=== PATIENT | female | born 1960 | race Caucasian/White ===

== ENCOUNTER 2018-07-04 10:55 | Emergency (ER) | payer OTHER ==
[2018-07-04] MEDS ORDERED: PSEUDOEPHEDRINE HCL 30 MG TABLET PO ONE (12:15)
[2018-07-04] MEDS ORDERED: IPRATROPIUM/ALBUTEROL 0.5-2.5 MG/3 ML AMPUL NEB ONE (12:15)
[2018-07-04] MEDS ORDERED: PREDNISONE 20 MG TABLET PO ONE (12:15)
--- NOTE | 2018-07-04 12:16 | ER Document Report ---
HPI - HPI Patient complains to provider of: Cough Time Seen by Provider: 07/04/18 12:01 Onset/Duration: Persistent Pain Level: Denies Context: Patient presents complaining of nonproductive cough for the past 3-4 months. Patient does report sinus congestion that worsened today. Patient complains of fullness in her right ear. Patient denies any fever. Patient denies any history of smoking although states that she has chronically been around secondhand smoke for greater than 20 years. Associated Symptoms: Nonproductive cough, Rhinnorhea, Sinus pain/drainage. denies: Body/muscle aches, Chest pain, Fever, Sore throat Exacerbated by: Denies Relieved by: Denies Similar symptoms previously: No Recently seen / treated by doctor: No - ROS ROS below otherwise negative: Yes Systems Reviewed and Negative: Yes All other systems reviewed and negative - CONSTITUTIONAL Constitutional: DENIES: Fever - EENT EENT: REPORTS: Ear Pain, Congestion - NEURO Neurology: DENIES: Headache - CARDIOVASCULAR Cardiovascular: DENIES: Chest pain - RESPIRATORY Respiratory: REPORTS: Coughing. DENIES: Trouble Breathing - GASTROINTESTINAL Gastrointestinal: DENIES: Abdominal Pain, Nausea, Patient vomiting - MUSCULOSKELETAL Musculoskeletal: DENIES: Extremity pain, Back Pain - DERM Skin Color: Normal Skin Problems: None Past Medical History - General Information source: Patient - Social History Smoking Status: Never Smoker Frequency of alcohol use: Occasional Drug Abuse: None Occupation: None Lives with: Spouse/Significant other Family History: Reviewed & Not Pertinent EENT Medical History: Reports: Other - Seasonal allergies Endocrine Medical History: Reports: Hx Diabetes Mellitus Type 2 - controlled without meds Past Surgical History: Reports: Hx Section, Hx Cholecystectomy - Immunizations Hx Diphtheria, Pertussis, Tetanus Vaccination: Yes Vertical Provider Document - CONSTITUTIONAL Agree With Documented VS: Yes Exam Limitations: No Limitations General Appearance: WD/WN, No Apparent Distress - INFECTION CONTROL TRAVEL OUTSIDE OF THE [place] IN LAST 30 DAYS: No - HEENT HEENT: Atraumatic, Normocephalic. negative: Pharyngeal Exudate, Pharyngeal [place], Pharyngeal Erythema, Tympanic Membrane Red, Tympanic Membrane Bulging Notes: Clear rhinorrhea - NECK Neck: Normal Inspection, Supple. negative: Lymphadenopathy-Left, Lymphadenopathy-Right - RESPIRATORY Respiratory: No Respiratory Distress, Chest Non-Tender, Other - Occasional dry cough - CARDIOVASCULAR Cardiovascular: Regular Rate, Regular Rhythm, No Murmur. negative: Tachycardia - GI/ABDOMEN Gastrointestinal: Abdomen Soft - BACK Back: Normal Inspection - MUSCULOSKELETAL/EXTREMETIES Musculoskeletal/Extremeties: BIBI BUCKLEY - NEURO Level of Consciousness: Awake, Alert, Appropriate Motor/Sensory: No Motor Deficit - DERM Integumentary: Warm, Dry, No Rash Course - Re-evaluation Re-evalutation: 07/04/18 13:21 Respirations even unlabored. Patient nontoxic in appearance. Patient denies any chest discomfort. We will treat for bronchitis and encouraged outpatient follow-up with primary doctor pulmonology given length of cough duration. - Vital Signs Vital signs: Temp Pulse Resp BP Pulse Ox 98.0 F 103 H 16 140/78 H 99 07/04/18 11:01 07/04/18 11:01 07/04/18 11:01 07/04/18 11:01 07/04/18 11:01 - Diagnostic Test Radiology reviewed: Reports reviewed Discharge - Discharge Clinical Impression: Bronchitis, Sinus congestion Condition: Stable Disposition: HOME, SELF-CARE Instructions: Bronchitis ([facility]), Inhaled Bronchodilators ([facility]), Steroid Medication Additional Instructions: Return immediately for any new or worsening symptoms Followup with your primary care provider, call tomorrow to make a followup appointment Continue to take your Zyrtec as directed. Prescriptions: Albuterol Sulfate [Proair Hfa Inhalation Aerosol 8.5 gm Mdi] 2 puff IH Q4 PRN #1 mdi PRN Reason: Fluticasone Propionate [Flonase Nasal [place] 50 Mcg/[place] 16 gm] 2 spray NASL DAILY #1 bottle Prednisone [Deltasone 10 mg Tablet] 10 mg PO ASDIR PRN #21 tablet PRN Reason: Referrals: [facility] [Provider Group] - Follow up as needed [facility] [Provider Group] - Follow up as needed
--- NOTE | 2018-07-04 12:46 | RADIOLOGY REPORT (SQ) ---
EXAM DESCRIPTION: CHEST 2 VIEWS COMPLETED DATE/TIME: 07/04/2018 12:30 pm REASON FOR STUDY: cough COMPARISON: 02/10/2016 EXAM PARAMETERS: NUMBER OF VIEWS: two views TECHNIQUE: Digital Frontal and Lateral radiographic views of the chest acquired. RADIATION DOSE: NA LIMITATIONS: None FINDINGS: LUNGS AND PLEURA: No opacities, masses or pneumothorax. No pleural effusion. MEDIASTINUM AND HILAR STRUCTURES: No masses or contour abnormalities. HEART AND VASCULAR STRUCTURES: Heart normal size. No evidence for failure. BONES: No acute findings. HARDWARE: None in the chest. OTHER: No other significant finding. IMPRESSION: NO ACUTE RADIOGRAPHIC FINDING IN THE CHEST. TECHNICAL DOCUMENTATION: JOB ID: [id number] [employer]- All Rights Reserved Reading location - IP/workstation name: [email or web address]
[2018-07-04 13:55] VITALS: BP 171/93
== END 2018-07-04 13:48 | disposition home or self-care (01) ==
LOC: ER 10:55
DX: J40 Bronchitis, not specified as acute or chronic (principal); R05 Cough; R09.81 Nasal congestion; J34.89 Other specified disorders of nose and nasal sinuses; H92.09 Otalgia, unspecified ear; E11.9 Type 2 diabetes mellitus without complications
CPT/HCPCS: 94640; 99283; 71046; J7512; J7620

== ENCOUNTER 2018-07-27 11:25 | Emergency (ER) | payer OTHER ==
[2018-07-27] MEDS ORDERED: IPRATROPIUM/ALBUTEROL 0.5-2.5 MG/3 ML AMPUL NEB ONE (11:47)
--- NOTE | 2018-07-27 11:49 | ER Document Report ---
ED Medical Screen (RME) - General Chief Complaint: Cough Stated Complaint: COUGH,FEVER,SORE THROAT Time Seen by Provider: 07/27/18 11:38 Mode of Arrival: Ambulatory Information source: Patient Notes: Patient presents complaining of cough for the past 5 months that worsened over the past 3 weeks. Patient feels that the cough has started to get more wet. Patient does complain of sore throat and states she has had a fever for the past 9 days. Patient complains of shortness of breath and right posterior thoracic back pain. Patient does report exposure to influenza. Patient was seen here 3 weeks ago for this complaint and encouraged to follow-up with a primary doctor as well as pulmonology. I have greeted and performed a rapid initial assessment of this patient. A comprehensive ED assessment and evaluation of the patient, analysis of test results and completion of the medical decision making process will be conducted by additional ED providers. TRAVEL OUTSIDE OF THE [place] IN LAST 30 DAYS: No - Related Data Allergies/Adverse Reactions: No Known Allergies Allergy (Verified 07/27/18 11:28) Past Medical History - Social History Chew tobacco use (# tins/day): No Frequency of alcohol use: None Drug Abuse: None Endocrine Medical History: Reports: Hx Diabetes Mellitus Type 2 - controlled without meds Renal/ Medical History: Denies: Hx Peritoneal Dialysis Past Surgical History: Reports: Hx Section, Hx Cholecystectomy - Immunizations Hx Diphtheria, Pertussis, Tetanus Vaccination: Yes Physical Exam - Vital signs Vitals: Temp Pulse Resp BP Pulse Ox 98.3 F 95 18 150/78 H 95 07/27/18 11:32 07/27/18 11:32 07/27/18 11:32 07/27/18 11:32 07/27/18 11:32 - Respiratory Respiratory status: No respiratory distress Chest status: Nontender Breath sounds: Nonproductive cough, Wheezing - Faint wheeze with coughing Course - Vital Signs Vital signs: Temp Pulse Resp BP Pulse Ox 98.3 F 95 18 150/78 H 07/27/18 11:32 07/27/18 11:32 07/27/18 11:32 07/27/18 11:32 07/27/18 11:32
--- NOTE | 2018-07-27 12:12 | RADIOLOGY REPORT (SQ) ---
EXAM DESCRIPTION: CHEST 2 VIEWS COMPLETED DATE/TIME: 07/27/2018 12:04 pm REASON FOR STUDY: fever, cough COMPARISON: Two-view chest 07/04/2018 EXAM PARAMETERS: NUMBER OF VIEWS: two views TECHNIQUE: Digital Frontal and Lateral radiographic views of the chest acquired. RADIATION DOSE: NA LIMITATIONS: none FINDINGS: LUNGS AND PLEURA: No opacities, masses or pneumothorax. No pleural effusion. MEDIASTINUM AND HILAR STRUCTURES: No masses or contour abnormalities. HEART AND VASCULAR STRUCTURES: Heart normal size. No evidence for failure. BONES: No acute findings. HARDWARE: Clips right upper quadrant post cholecystectomy OTHER: No other significant finding. IMPRESSION: NO ACUTE RADIOGRAPHIC FINDING IN THE CHEST. TECHNICAL DOCUMENTATION: JOB ID: [id number] [employer]- All Rights Reserved Reading location - IP/workstation name: [email or web address]
--- NOTE | 2018-07-27 12:22 | ER Document Report ---
ED General - General Chief Complaint: Cough Stated Complaint: COUGH,FEVER,SORE THROAT Time Seen by Provider: 07/27/18 11:38 Mode of Arrival: Ambulatory TRAVEL OUTSIDE OF THE [place] IN LAST 30 DAYS: No - HPI Notes: Patient is a 58-year-old female that presents to the emergency department for chief complaint of cough, fever and right side pain. Patient reports cough for the last few months. She states it is usually dry but has recently become more "wet". She denies any sputum production. She states she has had a fever on and off for the last 9 days. The highest temperature at home was 101.5. She has been taking Motrin at home for her fever which she states temporarily gives her relief. Patient reports a sharp pain in her right flank with deep inspiration occasionally. This pain has been present for the last few days. It is not there all the time and she states only occurs when she is coughing or breathing. She denies any associated chest pain. She denies syncope, palpitations, nausea, vomiting and abdominal pain. She did not get an influenza vaccine this year. Past Medical History: Diabetes Past Surgical History: Cholecystectomy, Social History: Heavy secondhand smoke exposure, denies drugs, occasional alcohol use Family History: Reviewed and noncontributory for presenting illness Allergies: Reviewed, see documented allergy list. REVIEW OF SYSTEMS: CONSTITUTIONAL : fever chills No diaphoresis No recent illness EENT: No vision changes No congestion No sore throat CARDIOVASCULAR: No chest pain No palpitations RESPIRATORY: shortness of breath cough No difficulty breathing GASTROINTESTINAL: No abdominal pain No nausea No vomiting No diarrhea GENITOURINARY: No dysuria No hematuria No difficulty urinating MUSCULOSKELETAL: No back pain No leg pain No arm pain SKIN: No rashes No lesions LYMPHATIC: No swollen, enlarged glands. NEUROLOGICAL: No lightheadedness No headache No weakness No paresthesias PSYCHIATRIC: No anxiety No depression PHYSICAL EXAMINATION: Vital signs reviewed, nursing noted reviewed. GENERAL: Well-appearing, well-nourished and in no acute distress. HEAD: Atraumatic, normocephalic. EYES: Eyes appear normal, extraocular movements intact, sclera anicteric, conjunctiva are normal. ENT: nares patent, oropharynx clear without exudates. Moist mucous membranes. NECK: Normal range of motion, supple without lymphadenopathy LUNGS: Breath sounds clear to auscultation bilaterally and equal. No wheezes rales or rhonchi. HEART: Regular rate and rhythm without murmurs ABDOMEN: Soft, nontender, normoactive bowel sounds. No rebound, guarding, or rigidity. No masses appreciated. EXTREMITIES: Nontender, good range of motion, no pitting or edema. NEUROLOGICAL: No focal neurological deficits. Moves all extremities spontaneously Motor and sensory grossly intact on exam. PSYCH: Normal mood, normal affect. SKIN: Warm, Dry, normal turgor, no rashes or lesions noted on exposed skin - Related Data Allergies/Adverse Reactions: No Known Allergies Allergy (Verified 07/27/18 11:28) Past Medical History - General Information source: Patient - Social History Smoking Status: Never Smoker Chew tobacco use (# tins/day): No Frequency of alcohol use: None Drug Abuse: None Family History: Reviewed & Not Pertinent Patient has suicidal ideation: No Patient has homicidal ideation: No Endocrine Medical History: Reports: Hx Diabetes Mellitus Type 2 - controlled without meds Renal/ Medical History: Denies: Hx Peritoneal Dialysis Past Surgical History: Reports: Hx Section, Hx Cholecystectomy - Immunizations Hx Diphtheria, Pertussis, Tetanus Vaccination: Yes Physical Exam - Vital signs Vitals: Temp Pulse Resp BP Pulse Ox 98.3 F 95 18 150/78 H 95 07/27/18 11:32 07/27/18 11:32 07/27/18 11:32 07/27/18 11:32 07/27/18 11:32 Course - Re-evaluation Re-evalutation: 07/27/18 12:22 Vitals reviewed. Nursing notes reviewed. Patient is afebrile and nontoxic in appearance. Her chest x-ray shows no acute process. Her EKG is unremarkable. 07/27/18 14:29 Patient's workup today shows some small pulmonary nodules which may be infectious in nature. This is why she will be started on azithromycin, the first dose was given in the emergency room. There is no pulmonary embolism on CTA. The remainder of her workup is unremarkable. Patient was told to follow for repeat CT scan in 3-6 months for further investigation into the nodules. She will return to the emergency room for any new or worsening symptoms. She is stable at discharge. Laboratory 07/27/18 07/27/18 07/27/18 12:29 12:29 12:29 WBC 8.0 RBC 4.58 Hgb 14.1 Hct 39.7 MCV 87 MCH 30.7 MCHC 35.5 RDW 12.6 Plt Count 331 Seg Neutrophils % 66.9 Lymphocytes % 21.5 Monocytes % 10.1 Eosinophils % 1.2 Basophils % 0.3 Absolute Neutrophils 5.3 Absolute Lymphocytes 1.7 Absolute Monocytes 0.8 Absolute Eosinophils 0.1 Absolute Basophils 0.0 D-Dimer 0.63 H Sodium 139.4 Potassium 3.5 L Chloride 101 Carbon Dioxide 30 Anion Gap 8 BUN 15 Creatinine 0.72 Est GFR ( Amer) > 60 Est GFR (Non-Af Amer) > 60 Glucose 151 H Calcium 9.3 Laboratory 07/27/18 07/27/18 07/27/18 12:29 12:29 12:29 WBC 8.0 RBC 4.58 Hgb 14.1 Hct 39.7 MCV 87 MCH 30.7 MCHC 35.5 RDW 12.6 Plt Count 331 Seg Neutrophils % 66.9 Lymphocytes % 21.5 Monocytes % 10.1 Eosinophils % 1.2 Basophils % 0.3 Absolute Neutrophils 5.3 Absolute Lymphocytes 1.7 Absolute Monocytes 0.8 Absolute Eosinophils 0.1 Absolute Basophils 0.0 D-Dimer 0.63 H Sodium 139.4 Potassium 3.5 L Chloride 101 Carbon Dioxide 30 Anion Gap 8 BUN 15 Creatinine 0.72 Est GFR ( Amer) > 60 Est GFR (Non-Af Amer) > 60 Glucose 151 H Calcium 9.3 Chest X-Ray 07/27/18 11:47 IMPRESSION: NO ACUTE RADIOGRAPHIC FINDING IN THE CHEST. Chest/Abdomen CTA 07/27/18 13:18 IMPRESSION: 1. Negative examination for pulmonary embolism. 2. Multiple scattered bilateral subsolid pulmonary nodules measuring up to 12 mm, likely infectious or inflammatory although nonspecific. Recommend initial follow-up CT at 3 to 6 months per Fleischner society criteria to ensure stability or resolution. 3. Hepatic steatosis. - Vital Signs Vital signs: Temp Pulse Resp BP Pulse Ox 98.3 F 95 18 150/78 H 95 07/27/18 11:32 07/27/18 11:32 07/27/18 11:32 07/27/18 11:32 07/27/18 11:32 - Laboratory Result Diagrams: 07/27/18 12:29 07/27/18 12:29 Laboratory results interpreted by me: 07/27/18 07/27/18 12:29 12:29 D-Dimer 0.63 H Potassium 3.5 L Glucose 151 H Discharge - Discharge Clinical Impression: Pulmonary nodule, Cough Fever Qualifiers: Fever type: unspecified Qualified Code(s): R50.9 - Fever, unspecified Condition: Stable Disposition: HOME, SELF-CARE Instructions: Pneumonia ([facility]) Additional Instructions: Please return to the emergency department if you have any worsening, or concern of your symptoms. Please return to the emergency department if you develop chest pain, difficulty breathing, severe abdominal pain, or ongoing vomiting. Please follow-up with your primary care physician in 2-3 days and any other recommended physicians. If prescribed, take all medications as directed. If you have any questions or concerns do not hesitate to return the emergency department for evaluation. There were a few small pulmonary nodules, also known his lung masses, seen on your CT scan today. These may represent infection which is why you were started on antibiotics. Pulmonary nodules also can increase in size and become cancerous which is why it is important that you follow-up. You need to have another CT scan done in the next 3-6 months for reevaluation to make sure they are not changing or increasing in size. The CT should be ordered by your primary care provider. Prescriptions: Benzonatate [Tessalon Perles 100 mg Capsule] 100 mg PO Q8HP PRN #30 capsule PRN Reason: Cough Azithromycin [Zithromax 250 mg Tablet] 250 mg PO ASDIR PRN #4 tablet PRN Reason: Referrals: [facility] [Provider Group] - Follow up in 3-5 days
--- NOTE | 2018-07-27 12:39 | EKG REPORT ---
SEVERITY:- BORDERLINE ECG - SINUS RHYTHM BORDERLINE ST-T ABNORMALITIES, DIFFUSE LEADS : Confirmed by: Gisell Cerda 27-Jul-2018 12:38:23
[2018-07-27 12:45] LABS: ABSOLUTE EOSINOPHILS # (AUTO) 0.1 10^3/uL (0.0-0.6); ABSOLUTE LYMPHOCYTES (AUTO) 1.7 10^3/uL (0.5-4.7); ABSOLUTE MONOCYTES (AUTO) 0.8 10^3/uL (0.1-1.4); ABSOLUTE NEUT (AUTO) 5.3 10^3/uL (1.7-8.2); BASOPHILS % (AUTO) 0.3 % (0-2); EOSINOPHILS % (AUTO) 1.2 % (0-6); HEMATOCRIT 39.7 % (36.0-47.0); HEMOGLOBIN 14.1 g/dL (12.0-15.5); LYMPHOCYTES % (AUTO) 21.5 % (13-45); MEAN CORPUSCULAR HEMOGLOBIN 30.7 pg (27.0-33.4); MEAN CORPUSCULAR HGB CONC 35.5 g/dL (32.0-36.0); MEAN CORPUSCULAR VOLUME 87 fl (80-97); MONOCYTES % (AUTO) 10.1 % (3-13); PLATELET COUNT 331 10^3/uL (150-450); RED BLOOD COUNT 4.58 10^6/uL (3.72-5.28); RED CELL DISTRIBUTION WIDTH 12.6 % (11.5-14.0); SEGMENTED NEUTROPHILS % (AUTO) 66.9 % (42-78); TOTAL CELLS COUNTED % (AUTO) 100 %
[2018-07-27 13:02] LABS: ANION GAP 8 (5-19); BLOOD UREA NITROGEN 15 mg/dL (7-20); CALCIUM 9.3 mg/dL (8.4-10.2); CARBON DIOXIDE 30 mmol/L (22-30); CHLORIDE 101 mmol/L (98-107); GLUCOSE 151 mg/dL (75-110); POTASSIUM 3.5 mmol/L (3.6-5.0); SODIUM 139.4 mmol/L (137-145)
--- NOTE | 2018-07-27 14:21 | RADIOLOGY REPORT (SQ) ---
EXAM DESCRIPTION: CTA CHEST COMPLETED DATE/TIME: 07/27/2018 2:04 pm REASON FOR STUDY: PE COMPARISON: Same day chest radiograph TECHNIQUE: CT scan of the chest performed using helical scanning technique with dynamic intravenous contrast injection. Images reviewed with lung, soft tissue and bone windows. Reconstructed coronal and sagittal MPR images reviewed. Additional 3 dimensional post-processing performed to develop Maximal Intensity Projection images (UT P). All images stored on PACS. All CT scanners at this facility use dose modulation, iterative reconstruction, and/or weight based d osing when appropriate to reduce radiation dose to as low as reasonably achievable (ALARA). [facility]: Dose Right [facility]: CareDose [facility]: Dose Right [facility]: Teradose 4D [facility]: [employer] CONTRAST TYPE AND DOSE: contrast/concentration: Isovue 350.00 mg/ml; Total Contrast Delivered: 73.0 ml; Total Saline Delivered: 80.0 ml Contrast bolus optimized for the pulmonary arteries. Not diagnostic for the aorta. RENAL FUNCTION: GFR > 60. RADIATION DOSE: 821 mGy cm LIMITATIONS: None. FINDINGS: LUNGS AND PLEURA: There are multiple scattered bilateral subsolid pulmonary nodules, the l argest in the medial right lower lobe measuring 12 mm (series 3, image 71). AORTA AND GREAT VESSELS: No aneurysm. Contrast bolus not optimized for the aorta. HEART: No pericardial effusion. No significant coronary artery calcifications. PULMONARY ARTERIES: No emboli visualized in the main pulmonary arteries or the segmental branches. HILAR AND MEDIASTINAL STRUCTURES: No identified masses or abnormal nodes. HARDWARE: None in the chest. UPPER ABDOMEN: Hepatic steatosis. Status post cholecystectomy. THYROID AND OTHER SOFT TISSUES: No masses. No adenopathy. BONES: No acute or significant finding. 3D MIPS: Confirm above findings. OTHER: No other significant finding. IMPRESSION: 1. Negative examination for pulmonary embolism. 2. Multiple scattered bilateral subsolid pulmonary nodules measuring up to 12 mm, likely infectious or inflammatory although nonspecific. Recommend initial follow-up CT at 3 to 6 months per Fleischner society criteria to ensure stability or resolution. 3. Hepatic steatosis. COMMENT: Quality ID # [id number]: Final reports with documentation of one or more dose reduction techniques (e.g., Automated exposure control, adjustment of the mA and/or kV according to patient size, use of iterative reconstruction technique) TECHNICAL DOCUMENTATION: JOB ID: [id number]- All Rights Reserved Reading location - IP/workstation name: [email or web address]
[2018-07-27] MEDS ORDERED: AZITHROMYCIN 250 MG TABLET PO ONE (14:25)
[2018-07-27 15:27] VITALS: BP 148/77
== END 2018-07-27 15:27 | disposition home or self-care (01) ==
LOC: ER 11:25
DX: R05 Cough (principal); R91.8 Other nonspecific abnormal finding of lung field; K76.0 Fatty (change of) liver, not elsewhere classified; R50.9 Fever, unspecified; R10.9 Unspecified abdominal pain; E11.9 Type 2 diabetes mellitus without complications; Z90.49 Acquired absence of other specified parts of digestive tract; R06.02 Shortness of breath
CPT/HCPCS: 93005; 94640; 99284; 36415; 85025; 80048; 85379; 71046; 71275; 93010; J7620

== ENCOUNTER 2020-05-08 11:47 | Emergency (ER) | payer OTHER ==
[2020-05-08] MEDS ORDERED: BENZONATATE 100 MG CAPSULE PO ONE (12:29)
--- NOTE | 2020-05-08 12:31 | ER Document Report ---
ED Medical Screen (RME) - General Chief Complaint: Cough Stated Complaint: COUGH Time Seen by Provider: 05/08/20 12:25 Notes: Patient is a 52-year-old female with a history of pneumonia presents emergency department with a dry cough. Patient states that she would like to be tested for COVID-19. Her granddaughter had "sniffles" last week and they moved in with her. Exam: Heart rate 108. I have greeted and performed a rapid initial assessment of this patient. A comprehensive ED assessment and evaluation of the patient, analysis of test results and completion of medical decision making process will be conducted by an additional ED providers. TRAVEL OUTSIDE OF THE [place] IN LAST 30 DAYS: No - Related Data Allergies/Adverse Reactions: No Known Allergies Allergy (Verified 07/27/18 11:28) Past Medical History Endocrine Medical History: Reports: Hx Diabetes Mellitus Type 2 - controlled without meds Renal/ Medical History: Denies: Hx Peritoneal Dialysis Past Surgical History: Reports: Hx Section, Hx Cholecystectomy - Immunizations Hx Diphtheria, Pertussis, Tetanus Vaccination: Yes Physical Exam - Vital signs Vitals: Temp Pulse Resp BP Pulse Ox 98.3 F 108 H 18 121/65 96 05/08/20 12:13 05/08/20 12:13 05/08/20 12:13 05/08/20 12:13 05/08/20 12:13 Course - Vital Signs Vital signs: Temp Pulse Resp BP Pulse Ox 98.3 F 108 H 18 121/65 96 05/08/20 12:13 05/08/20 12:13 05/08/20 12:13 05/08/20 12:13 05/08/20 12:13
[2020-05-08 13:04] LABS: ABSOLUTE EOSINOPHILS # (AUTO) 0.1 10^3/uL (0.0-0.6); ABSOLUTE LYMPHOCYTES (AUTO) 1.5 10^3/uL (0.5-4.7); ABSOLUTE MONOCYTES (AUTO) 0.6 10^3/uL (0.1-1.4); ABSOLUTE NEUT (AUTO) 3.1 10^3/uL (1.7-8.2); BASOPHILS % (AUTO) 0.4 % (0-2); EOSINOPHILS % (AUTO) 2.1 % (0-6); HEMATOCRIT 39.2 % (36.0-47.0); HEMOGLOBIN 13.7 g/dL (12.0-15.5); LYMPHOCYTES % (AUTO) 28.6 % (13-45); MEAN CORPUSCULAR HEMOGLOBIN 30.3 pg (27.0-33.4); MEAN CORPUSCULAR HGB CONC 35.1 g/dL (32.0-36.0); MEAN CORPUSCULAR VOLUME 87 fl (80-97); MONOCYTES % (AUTO) 10.6 % (3-13); PLATELET COUNT 213 10^3/uL (150-450); RED BLOOD COUNT 4.53 10^6/uL (3.72-5.28); RED CELL DISTRIBUTION WIDTH 13.1 % (11.5-14.0); SEGMENTED NEUTROPHILS % (AUTO) 58.3 % (42-78); TOTAL CELLS COUNTED % (AUTO) 100 %; WHITE BLOOD COUNT 5.4 10^3/uL (4.0-10.5)
--- NOTE | 2020-05-08 13:22 | RADIOLOGY REPORT (SQ) ---
EXAM DESCRIPTION: CHEST SINGLE VIEW IMAGES COMPLETED DATE/TIME: 05/08/2020 1:12 pm REASON FOR STUDY: cough COMPARISON: 07/27/2018 EXAM PARAMETERS: NUMBER OF VIEWS: One view. TECHNIQUE: Single frontal radiographic view of the chest acquired. RADIATION DOSE: NA LIMITATIONS: None. FINDINGS: LUNGS AND PLEURA: No opacities, masses or pneumothorax. No pleural effusion. MEDIASTINUM AND HILAR STRUCTURES: No masses. Contour normal. HEART AND VASCULAR STRUCTURES: Heart normal in size. Normal vasculature. BONES: Mild thoracic scoliosis with concavity toward the left. HARDWARE: None in the chest. OTHER: No other significant finding. IMPRESSION: NO ACUTE RADIOGRAPHIC FINDING IN THE CHEST. TECHNICAL DOCUMENTATION: JOB ID: [id number] 2010 [employer]- All Rights Reserved Reading location - IP/workstation name: [email or web address]
[2020-05-08 13:23] LABS: A TYPE INFLUENZA AG NEGATIVE (NEGATIVE); B INFLUENZA AG NEGATIVE (NEGATIVE)
[2020-05-08 13:27] LABS: ALBUMIN 3.8 g/dL (3.5-5.0); ALKALINE PHOSPHATASE 121 U/L (38-126); ANION GAP 9 (5-19); ASPARTATE AMINO TRANSFERASE 21 U/L (14-36); BILIRUBIN,DIRECT 0.1 mg/dL (0.0-0.4); BILIRUBIN,TOTAL 0.4 mg/dL (0.2-1.3); BLOOD UREA NITROGEN 21 mg/dL (7-20); CALCIUM 9.2 mg/dL (8.4-10.2); CARBON DIOXIDE 25 mmol/L (22-30); CHLORIDE 103 mmol/L (98-107); GLUCOSE 254 mg/dL (75-110); POTASSIUM 4.2 mmol/L (3.6-5.0); TOTAL PROTEIN 6.7 g/dL (6.3-8.2)
--- NOTE | 2020-05-08 16:42 | ER Document Report ---
Entered by CHAYO CASTILLO SCRIBE 05/08/20 5916 Acting as scribe for:HENRY INGRAM MD ED General - General Chief Complaint: Cough Stated Complaint: COUGH Time Seen by Provider: 05/08/20 12:25 Information source: Patient Notes: This 60 year old female patient presents to the emergency department today with complaints of a runny nose, sinus headache, sore throat, and non-productive cough. Patient states her granddaughter had cold symptoms x3 days ago and x1 day later she also developed these symptoms. Denies any N/V/D. TRAVEL OUTSIDE OF THE [place] IN LAST 30 DAYS: No - Related Data Allergies/Adverse Reactions: bee venom protein (honey bee) Allergy (Verified 05/08/20 13:11) Past Medical History - General Information source: Patient - Social History Smoking Status: Never Smoker Cigarette use (# per day): No Family History: Reviewed & Not Pertinent Pulmonary Medical History: Reports: Hx Bronchitis Endocrine Medical History: Reports: Hx Diabetes Mellitus Type 2 - controlled without meds Renal/ Medical History: Denies: Hx Peritoneal Dialysis Past Surgical History: Reports: Hx Section, Hx Cholecystectomy - Immunizations Hx Diphtheria, Pertussis, Tetanus Vaccination: Yes Review of Systems - Review of Systems Constitutional: No symptoms reported EENT: See HPI, Nose discharge, Sinus pressure, Throat pain Cardiovascular: No symptoms reported Respiratory: See HPI, Cough. denies: Sputum Gastrointestinal: See HPI. denies: Diarrhea, Nausea, Vomiting Genitourinary: No symptoms reported Female Genitourinary: No symptoms reported Musculoskeletal: No symptoms reported Skin: No symptoms reported Hematologic/Lymphatic: No symptoms reported Neurological/Psychological: No symptoms reported -: Yes All other systems reviewed and negative Physical Exam - Vital signs Vitals: Temp Pulse Resp BP Pulse Ox 98.3 F 108 H 18 121/65 96 05/08/20 12:13 05/08/20 12:13 05/08/20 12:13 05/08/20 12:13 05/08/20 12:13 - General General appearance: Appears well, Alert - HEENT Head: Normocephalic, Atraumatic Eyes: Normal Pupils: PERRL Nasal: Normal Pharynx: Normal. No: Erythema, Tonsillar hypertrophy Neck: Normal, Supple. No: Lymphadenopathy Notes: Mild tenderness with palpation to the frontal and maxillary sinus. - Respiratory Respiratory status: No respiratory distress Chest status: Nontender Breath sounds: Normal Chest palpation: Normal - Cardiovascular Rhythm: Regular Heart sounds: Normal auscultation Murmur: No - Abdominal Inspection: Normal Distension: No distension Bowel sounds: Normal Tenderness: Nontender - Extremities General upper extremity: Normal inspection, Normal ROM General lower extremity: Normal inspection, Normal ROM. No: Edema - Neurological Neuro grossly intact: Yes Cognition: Normal Orientation: AAOx4 [place] Coma Scale Eye Opening: Spontaneous [place] Coma Scale Verbal: Oriented [place] Coma Scale Motor: Obeys Commands [place] Coma Scale Total: 15 Speech: Normal Motor strength normal: LUE, RUE, LLE, RLE Sensory: Normal - Psychological Associated symptoms: Normal affect, Normal mood - Skin Skin Temperature: Warm Skin Moisture: Dry Skin Color: Normal Course - Re-evaluation Re-evalutation: 05/08/20 16:36 Patient resting comfortably not showing signs of distress. - Vital Signs Vital signs: Temp Pulse Resp BP Pulse Ox 98.2 F 108 H 18 121/65 96 05/08/20 12:50 05/08/20 12:13 05/08/20 12:13 05/08/20 12:13 05/08/20 12:13 05/08/20 16:36 Vital signs stable - Laboratory Result Diagrams: 05/08/20 12:43 05/08/20 12:43 Laboratory results interpreted by me: 05/08/20 12:43 Sodium 136.9 L BUN 21 H Glucose 254 H Otherwise unremarkable except for glucose of 254 and a BUN of 21. 05/08/20 16:38 Patient has history of diabetes mellitus patient will be advised of blood sugar is elevated today most likely due to distress of her upper respiratory infection. 05/08/20 16:38 Negative for influenza a and B and strep. COVID-19's study is pending at this time. - Diagnostic Test Radiology reviewed: Image reviewed, Reports reviewed Radiology results interpreted by me: 05/08/20 16:37 Chest X-Ray 05/08/20 12:29 IMPRESSION: NO ACUTE RADIOGRAPHIC FINDING IN THE CHEST. Chest x-ray shows no acute process. Discharge - Discharge Clinical Impression: Suspected COVID-19 virus infection, Upper respiratory infection, Acute bronchitis Condition: Stable Disposition: HOME, SELF-CARE Instructions: COVID-19 Guidance for Persons Under Investigation, Acetaminophen, Upper Respiratory Illness ([facility]) Prescriptions: Amoxicillin 1 tab PO TID #30 tab Guaifenesin/Dextromethorphan [Mucinex Dm ER 600-30 mg Tablet] 1 each PO BID 10 Days #20 tab.er.[id number] I personally performed the services described in the documentation, reviewed and edited the documentation which was dictated to the scribe in my presence, and it accurately records my words and actions.
[2020-05-08 17:09] VITALS: BP 146/89
== END 2020-05-08 17:10 | disposition home or self-care (01) ==
LOC: ER 11:47
DX: J06.9 Acute upper respiratory infection, unspecified (principal); J40 Bronchitis, not specified as acute or chronic; Z20.828 Contact with and (suspected) exposure to other viral communicable diseases; R51.9 Headache, unspecified
CPT/HCPCS: 99284; 36415; 87070; 87880; 85025; 87635; 80053; 87804; 71045; C9803